=== PATIENT | female | born 1985 ===

== ENCOUNTER 2016-10-29 18:00 | Emergency (ER) | payer MEDICAID, SELFPAY ==
[2016-05-23 12:35] VITALS: BMI 25.5
--- NOTE | 2016-10-29 19:14 | OBHP ---
Datetime: 10/29/2016 18:58 IP Adm Impression: Term, intrauterine ; No Active Labor; Intact Membranes IP Admit Plan: Discharge home Admit Comment, IP Provider: IUP at 37w (EDC Nov 14) c/o abd pain all day on and off. Passed mu cous. no Vb. +FM PNC: CFH documented and rev'd chart PMH: kayla PSH: denies NKA PSOH kayla smoking ETOH drugs POBGYNH: No STD A: IUP at 37w not in labor PLAN Dischsarge home and follow up as scheduled withiin 1w labor instructions; pree-clampsia warning Pelvic Type - PN: Adequate Extremities - PN: Normal Abdomen - PN: Normal Back - PN: Normal Breast - PN: Normal Lungs - PN: Normal Heart - PN: Normal Thyroid - PN: Normal Neurologic - PN: Normal HEENT - PN: Normal General - PN: Normal Presentation-Admit: Vertex FHR - Baseline A Provider: 140 Membranes, Provider: Intact Comments, ACOG Physical Exam: ROS: General: no weakness; no fatigue HEENT: no GLORIA; no visual dist CV: no palpitations; no no CP GI: no N/V no diarhea No epigastric pain; non radiating : no F/U/D MS: No joint pain Pool Provider: Negative IP Hx Assessment: The History has been Reviewed and is Current IP Chief Complaint: Uterine contractions NICHD Variability Prov Fetus A: Moderate 6-25bpm NICHD Accel Fetus A IP Provider: 15X15 FHR Category Provider Fetus A: Category I Dilatation, Provider: 0 Effacement, Provider: 0 Station, Provider: high Genitourinary Exam: Normal DTRs - PN: Normal
--- NOTE | 2016-10-29 19:14 | OBDCSUM ---
Datetime: 10/29/2016 19:11 Discharged to, Provider: Home Discharged to, Provider: Home Follow up at, Provider: [facility] Disch Instr Activity: Normal activity Disch Instr Diet: Regular Discharge Diagnosis, Provider: False Labor - Undelivered Discharge Time: 10/29/2016 19:15 Follow up in weeks, Provider: 1w Disch Referrals: None
[2016-10-30] MEDS ORDERED: Oxytocin 30 units/LR 500ML 30 U/500 ML BAG IV ONE (08:31)
== END 2016-10-29 19:15 | disposition home or self-care (01) ==
LOC: H.EROB2 18:00
DX: O47.1 False labor at or after 37 completed weeks of gestation (principal); Z3A.37 37 weeks gestation of pregnancy

== ENCOUNTER 2016-10-30 06:23 | Inpatient (IN) | payer MEDICAID, SELFPAY ==
[2016-10-30 07:24] VITALS: BMI 27.1
[2016-10-30] MEDS ORDERED: Lactated Ringer's 1,000 ML IV SCH (07:32)
[2016-10-30] MEDS ORDERED: Oxytocin 30 units/LR 500ML 30 U/500 ML BAG IV SCH (07:45)
[2016-10-30] MEDS: Lactated Ringer's 1,000 ML IV SCH ×2 (07:45→09:08)
[2016-10-30 08:24] LABS: BASO # 0.1 K/uL (0.0-0.2); BASO % 0.5 % (0.0-2.0); EOS % 0.2 % (0.0-4.0); HEMOGLOBIN 12.6 g/dL (12.0-16.0); LYMPH # 1.5 K/uL (1.0-4.3); LYMPH % 10.9 % (20.0-40.0); MEAN CELL VOLUME 85.7 fl (81.0-99.0); MEAN CORPUSCULAR HEMOGLOBIN 28.4 pg (27.0-31.0); MEAN CORPUSCULAR HGB CONC 33.1 g/dL (33.0-37.0); MEAN PLATELET VOLUME 11.7 fl (7.2-11.7); MONO # 0.7 K/uL (0.0-0.8); MONO % 5.2 % (0.0-10.0); NEUT # 11.5 K/uL (1.8-7.0); NEUT % 83.2 % (50.0-75.0); NRBC % 0.1 % (0.0-0.0); RBC 4.45 Mil/uL (3.80-5.20); RED CELL DISTRIBUTION WIDTH 14.1 % (11.5-14.5); WHITE BLOOD COUNT 13.9 K/uL (4.8-10.8)
--- NOTE | 2016-10-30 08:29 | OBADHP ---
Datetime: 10/30/2016 07:09 Admit Comment, IP Provider: 31 y/o F IUP at 37w (EDC Nov 14) c/o contractions every 5 mins and abdominal pain associated with contractions. pt admits passing little fluid and blood, less than a te aspoon. +FM, No SROM. PNC: CFH documented and rev'd chart PMH: none PSH: rt oophorectomy in 2013 NKDA PSOH kayla smoking ETOH drugs POBGYNH: , No STD, GBS- EXAM: 4/80%/-1,, FHR: 140, Variability: moderate, Accelerations: 15x15, Category 1 Assesment: A 31 y/o F with IUP at 37.6wk painful CTX early labor Plan: Admite to L_D Initiate vaginal delivery protocol NPO Labs ordered Consent for delievery Monitor VS OB Hospitalist note: This pt was seen and examined by me. Agree with above note. MAHNDO Discussion about labor, pain management, delivrey and care Extremities - PN: Normal Back - PN: Normal Lungs - PN: Normal Heart - PN: Normal Thyroid - PN: Normal Neurologic - PN: Normal HEENT - PN: Normal General - PN: Normal FHR - Baseline A Provider: 130 Membranes, Provider: Intact Contraction Comments Provider: 2-4m Comments, ACOG Physical Exam: 4/80%/-1,, FHR: 140, Variability: moderate, Accelerations: 15x15, Ca tegory 1 ROS: General: no weakness; no fatigue HEENT: no GLORIA; no visual dist CV: no palpitations; no no CP GI: no N/V no diarhea No epigastric pain; non radiating : no F/U/D MS: No joint pain Pool Provider: Negative IP Hx Assessment: The History has been Reviewed and is Current IP Chief Complaint: Uterine contractions; Maternal discomfort NICHD Variability Prov Fetus A: Moderate 6-25bpm NICHD Accel Fetus A IP Provider: 15X15 FHR Category Provider Fetus A: Category I NICHD Decel Fetus A IP Provider: None Dilatation, Provider: 4 Effacement, Provider: 75 Station, Provider: 1 EGA AdmitDate IP: 37.6 IP Adm Impression: Term, intrauterine IP Admit Plan: Admit to unit Datetime: 10/29/2016 18:58 Pelvic Type - PN: Adequate Abdomen - PN: Normal Breast - PN: Normal Presentation-Admit: Vertex Genitourinary Exam: Normal DTRs - PN: Normal
[2016-10-30] MEDS ORDERED: Oxytocin 30 units/LR 500ML 30 U/500 ML BAG IV ONE (14:46)
[2016-10-30] MEDS ORDERED: Fentanyl/Bupivacaine HCl 250 ML EPI ONE (16:51)
[2016-10-30] MEDS ORDERED: Oxycodone/Acetaminophen 5/325 mg Tab PO PRN ×4 (18:35→19:40)
[2016-10-30] MEDS ORDERED: Benzocaine/Menthol SPRAY TOP PRN ×2 (18:35→19:40)
[2016-10-31 05:58] LABS: HEMOGLOBIN 10.7 g/dL (12.0-16.0); MEAN CELL VOLUME 86.5 fl (81.0-99.0); MEAN CORPUSCULAR HEMOGLOBIN 28.4 pg (27.0-31.0); MEAN CORPUSCULAR HGB CONC 32.8 g/dL (33.0-37.0); RBC 3.76 Mil/uL (3.80-5.20); RED CELL DISTRIBUTION WIDTH 14.7 % (11.5-14.5); WHITE BLOOD COUNT 17.5 K/uL (4.8-10.8)
--- NOTE | 2016-11-01 07:50 | OBDCSUM ---
Datetime: 11/01/2016 06:51 Discharged to, Provider: Home Follow up at, Provider: [facility] Disch Instr Activity: Normal activity; May be up to bathroom; May be up for meals; May Shower Disch Instr Diet: Regular Discharge Instructions, Provider: Routine instructions given Discharge Diagnosis, Provider: Term Delivered Discharge Time: 11/01/2016 11:00 Follow up in weeks, Provider: in 6 weeks Disch Activity Restrictions: No exercising; No lifting; No driving; Minimize walking; Minimize stair -climbing; No sexual activity; Nothing in vagina - [place], tampons, douche Discharge Comment, Provider: 31 YO who had a NVD. Gave to baby boy on 10/30/16, weight of 9 565. Pt had an umcomplicated and an uncomplicated PP course. No complications during postp artum, minimal locia. DISCHARGE INSTRUCTIONS: 1. Encourage 2. PNV 1 tab po q/day 3. Ibuprofen 600 mg 1 tab po prn q6 if moderate pain . 4. Ambulatory with caution, nothing per vagina, no heavy lifting, avoid stairs, if excessive bleeding or fever without relief from Tylenol go to ED 5. F/U with Dr. Day in 6 weeks, and 2 wks for baby Contraception after Delivery: Undecided
--- NOTE | 2016-11-01 07:50 | OBPPN ---
Datetime: 11/01/2016 06:45 PP Pain Prov: Within normal limits PP Nausea Prov: Denies PP Flatus Prov: Yes PP BM Prov: No PP Breasts Prov: Not Done PP Heart Prov: Normal PP Lungs Prov: Normal PP Abdomen/Uterus Prov: Normal PP Lochia Prov: Normal PP Vulva/Perineum Prov: Normal PP CVA Tenderness Prov: Not Done PP Extremities Prov: Normal PP C/S Incision Prov: Not Applicable PP Progress Prov: Normal PP Impression Prov: Normal progression PP Plan Prov: Continue present management; Discharge PP Progress Note Prov: This is a 31 YO who had a NVD with first degree lac on 10/30/16 in PM. Pt seen and examined at bedside. No acute changes overnight. Pt reports minimal abdominal pain, controll ed with pain medications. Pt is breast feeding baby. Tolerating PO intake. Voiding freely with no blo od noted. Denies n/v, fever, chills, chest pain, dyspnea, dizziness. PE: VS stable Gen: patient is fatigue, NAD CV: S1S2 no murmurs PUL: clear breath sounds b/l, no wheezing Abdomen: BS+, mild tenderness in the lower quadrants Ext: no pedal edema, NT A/P 31 YO who had a NVD on 10/30/16 in PM. VS stable and patient remains afebrile, tolerating pain with pain medications, tolerating liquid, doing well. Motrin and Percocet for pain patient is encouraged to breastfeed and ambulate care will continue d/c to home today Given instructions for follow up with PCP in 6 weeks and 2 weeks for baby Berta Lan PGY-I OB Hospitalist Addendum: Pt seen and examined by me. PPD 2 s/p , doing well, breast and bottle feeding. Discharge home today. (ES) Vital Signs Provider PP: Reviewed
[2016-11-01 21:31] VITALS: BP 97/57; PULSE 62; RESP 18; TEMP 98.4; O2SAT 100
== END 2016-11-01 16:20 | disposition home or self-care (01) | DRG 373 ==
LOC: H.EROB2 06:23 → H.L&D 07:32 → H.OB/GYN 20:45
PROVIDERS: ADMIT Obstetrics & Gynecology Gynecology; ATTEND Obstetrics & Gynecology Gynecology
PROC: 0HQ9XZZ Repair Perineum Skin, External Approach (ICD-10-PCS; principal; 2016-10-30)
PROC: 10E0XZZ Delivery of Products of Conception, External Approach (ICD-10-PCS; 2016-10-30)
PROC: 4A1HXCZ Monitoring of Products of Conception, Cardiac Rate, External Approach (ICD-10-PCS; 2016-10-30)
DX: O70.0 First degree perineal laceration during delivery (principal); Z37.0 Single live birth; Z3A.37 37 weeks gestation of pregnancy